=== PATIENT | male | born 1970 | race Caucasian/White ===

== ENCOUNTER 2017-11-21 14:38 | Emergency (ER) | payer SELFPAY ==
[~2017-11-21 14:38] MED LIST: DIFL500T PO
[2017-11-21] MEDS ORDERED: IOHEXOL 350 MG/ML 10 ML VIAL (for RAD DIAG) IVCONTRAST ONE (14:39)
[2017-11-21 14:51] VITALS: BP 104/78; PULSE 104; RESP 18; TEMP 98; O2SAT 98
[2017-11-21] MEDS ORDERED: SODIUM CHLOR 0.9% 1000 ML INJ 1,000 ML IV SCH (16:48)
--- NOTE | 2017-11-21 16:49 | PD ---
HPI Chief Complaint: GI Complaint Time Seen by Provider: 16:09 Travel History International Travel<30 days: No Contact w/Intl Traveler<30days: No Traveled to known affect area: No History of Present Illness HPI 47-year-old male presents emergency department for evaluation of abdominal pain , intermittently occurring over the last several months. It started again over the last few days. He has been unable to keep anything down. He denies any hematochezia or hematemesis. Denies any bowel or bladder changes. He denies fever chills. Pain is intermittently sharp but a constant ache. He has no other symptoms to report at this time. [facility] Past Medical History Medical History: Denies Significant Hx Social History Alcohol Use: Yes (DRINKS DAILY) Tobacco Use: Yes (1/2 PACK DAILY X 20 YEARS) Substance Use: No Allergies-Medications (Allergen,Severity, Reaction): Coded Allergies: No Known Allergies (Verified Allergy, Unknown, 11/21/17) Reported Meds & Prescriptions Reported Meds & Active Scripts Active [place] (Hydrocodone-Acetaminophen) 5 Mg-325 Mg Tab 1 Tab PO Q6H PRN Cipro (Ciprofloxacin HCl) 500 Mg Tab 500 Mg PO BID 10 Days Flagyl (Metronidazole) 500 Mg Tab 500 Mg PO TID 10 Days Review of Systems Except as stated in HPI: all other systems reviewed are Neg Physical Exam Narrative GENERAL: Well-nourished male patient in no acute distress SKIN: Focused skin assessment warm/dry. HEAD: Atraumatic. Normocephalic. EYES: Pupils equal and round. No scleral icterus. No injection or drainage. ENT: No nasal bleeding or discharge. Mucous membranes pink and moist. NECK: Trachea midline. No JVD. CARDIOVASCULAR: Tachycardic rate and rhythm. No murmur appreciated. RESPIRATORY: No accessory muscle use. Clear to auscultation. Breath sounds equal bilaterally. GASTROINTESTINAL: Abdomen soft, nondistended. Tenderness elicited palpation in the lower abdomen primarily on the left. Mild guarding. No rebound tenderness. Hepatic and splenic margins not palpable. MUSCULOSKELETAL: No obvious deformities. No clubbing. No cyanosis. No edema. NEUROLOGICAL: Awake and alert. No obvious cranial nerve deficits. Motor grossly within normal limits. Normal speech. PSYCHIATRIC: Appropriate mood and affect; insight and judgment normal. Data Data Last Documented VS Vital Signs Date Time Temp Pulse Resp B/P (MAP) Pulse Ox O2 Delivery O2 Flow Rate FiO2 11/21/17 19:59 90 16 122/68 (86) 96 11/21/17 14:51 98.0 Orders Orders Complete Blood Count With Diff (11/21/17 16:48) Comprehensive Metabolic Panel (11/21/17 16:48) Lipase (11/21/17 16:48) Ct Abd/Pel W Iv Contrast(Rout) (11/21/17 16:48) Iv Access Insert/Monitor (11/21/17 16:48) Ecg Monitoring (11/21/17 16:48) Oximetry (11/21/17 16:48) Ondansetron Inj (Zofran Inj) (11/21/17 17:00) Pantoprazole Inj (Protonix Inj) (11/21/17 17:00) Sodium Chlor 0.9% 1000 Ml Inj (Ns 1000 M (11/21/17 16:48) Sodium Chloride 0.9% Flush (Ns Flush) (11/21/17 17:00) Ketorolac Inj (Toradol Inj) (11/21/17 17:00) Iohexol 350 Inj (Omnipaque 350 Inj) (11/21/17 14:39) Ed Discharge Order (11/21/17 19:37) Labs Laboratory Tests Test 11/21/17 17:35 White Blood Count 8.6 TH/MM3 Red Blood Count 4.44 MIL/MM3 Hemoglobin 14.5 GM/DL Hematocrit 42.7 % Mean Corpuscular Volume 96.2 FL Mean Corpuscular Hemoglobin 32.6 PG Mean Corpuscular Hemoglobin Concent 33.9 % Red Cell Distribution Width 16.0 % Platelet Count 257 TH/MM3 Mean Platelet Volume 8.7 FL Neutrophils (%) (Auto) 69.4 % Lymphocytes (%) (Auto) 21.3 % Monocytes (%) (Auto) 6.3 % Eosinophils (%) (Auto) 1.6 % Basophils (%) (Auto) 1.4 % Neutrophils # (Auto) 6.0 TH/MM3 Lymphocytes # (Auto) 1.8 TH/MM3 Monocytes # (Auto) 0.5 TH/MM3 Eosinophils # (Auto) 0.1 TH/MM3 Basophils # (Auto) 0.1 TH/MM3 CBC Comment DIFF FINAL Differential Comment Blood Urea Nitrogen 3 MG/DL Creatinine 0.91 MG/DL Random Glucose 105 MG/DL Total Protein 7.2 GM/DL Albumin 3.9 GM/DL Calcium Level 9.0 MG/DL Alkaline Phosphatase 109 U/L Aspartate Amino Transf (AST/SGOT) 35 U/L Alanine Aminotransferase (ALT/SGPT) 24 U/L Total Bilirubin 0.7 MG/DL Sodium Level 134 MEQ/L Potassium Level 3.8 MEQ/L Chloride Level 97 MEQ/L Carbon Dioxide Level 27.6 MEQ/L Anion Gap 9 MEQ/L Estimat Glomerular Filtration Rate 89 ML/MIN Lipase 79 U/L MDM Medical Decision Making Medical Screen Exam Complete: Yes Emergency Medical Condition: Yes Medical Record Reviewed: Yes Differential Diagnosis Colitis versus diverticulitis versus appendicitis versus gastritis Narrative Course 47-year-old male presents emergency department for evaluation of abdominal pain , nausea, vomiting. Patient does have moderate tenderness to palpation of the abdomen, mostly in the lower quadrants. He appears overall well. He is mildly tachycardic. Laboratory Tests Test 11/21/17 17:35 White Blood Count 8.6 TH/MM3 Red Blood Count 4.44 MIL/MM3 Hemoglobin 14.5 GM/DL Hematocrit 42.7 % Mean Corpuscular Volume 96.2 FL Mean Corpuscular Hemoglobin 32.6 PG Mean Corpuscular Hemoglobin Concent 33.9 % Red Cell Distribution Width 16.0 % Platelet Count 257 TH/MM3 Mean Platelet Volume 8.7 FL Neutrophils (%) (Auto) 69.4 % Lymphocytes (%) (Auto) 21.3 % Monocytes (%) (Auto) 6.3 % Eosinophils (%) (Auto) 1.6 % Basophils (%) (Auto) 1.4 % Neutrophils # (Auto) 6.0 TH/MM3 Lymphocytes # (Auto) 1.8 TH/MM3 Monocytes # (Auto) 0.5 TH/MM3 Eosinophils # (Auto) 0.1 TH/MM3 Basophils # (Auto) 0.1 TH/MM3 CBC Comment DIFF FINAL Differential Comment Blood Urea Nitrogen 3 MG/DL Creatinine 0.91 MG/DL Random Glucose 105 MG/DL Total Protein 7.2 GM/DL Albumin 3.9 GM/DL Calcium Level 9.0 MG/DL Alkaline Phosphatase 109 U/L Aspartate Amino Transf (AST/SGOT) 35 U/L Alanine Aminotransferase (ALT/SGPT) 24 U/L Total Bilirubin 0.7 MG/DL Sodium Level 134 MEQ/L Potassium Level 3.8 MEQ/L Chloride Level 97 MEQ/L Carbon Dioxide Level 27.6 MEQ/L Anion Gap 9 MEQ/L Estimat Glomerular Filtration Rate 89 ML/MIN Lipase 79 U/L Last Impressions Abdomen/Pelvis CT 11/21/17 1648 Signed Impressions: Service Date/Time: Tuesday, November 21, 2017 19:09 - CONCLUSION: 1. Mild diffuse wall thickening involving the sigmoid colon consistent with possible mild diverticulitis. No pericolic stranding or abscess collection is noted. 2. Mild chronic compression deformities involving L1 and L2. 3. Multiple bilateral renal cysts. Yazan Bailey MD Findings are reviewed with my attending physician. Patient will be discharged home on Flagyl and Cipro. He is encouraged to follow-up with a payroll accounting specialist. He agrees to return immediately with acute worsening symptoms. Diagnosis Primary Impression: Diverticulitis Referrals: French Professor Primary Care Physician Patient Instructions: Diverticulitis (ED), General Instructions Additional Instructions: Follow-up with a primary care provider See gastroenterology evaluation Return immediately with acute worsening symptoms Med/Other Pt SpecificInfo: Prescription(s) given Scripts Hydrocodone-Acetaminophen ([place]) 5 Mg-325 Mg Tab 1 TAB PO Q6H Y for PAIN SCALE 1 TO 10, #12 TAB 0 Refills Prov: Kylie Kimbrough 11/21/17 Ciprofloxacin (Cipro) 500 Mg Tab 500 MG PO BID for Infection for 10 Days, #20 TAB 0 Refills Prov: Kylie Kimbrough 11/21/17 Metronidazole (Flagyl) 500 Mg Tab 500 MG PO TID for Infection for 10 Days, TAB 0 Refills Prov: Kylie Kimbrough 11/21/17 Disposition: 01 DISCHARGE HOME Condition: Stable Kylie Kimbrough November 21, 2017 16:49
[2017-11-21] MEDS ORDERED: ONDANSETRON HCL 4 MG/2 ML VIAL IVP ONE (17:00)
[2017-11-21] MEDS ORDERED: SODIUM CHLORIDE 0.9% FLUSH 10 ML FLUSH IV FLUSH PRN (17:00)
[2017-11-21] MEDS ORDERED: PANTOPRAZOLE SODIUM 40 MG VIAL IVP ONE (17:00)
[2017-11-21] MEDS ORDERED: KETOROLAC TROMETHAMINE 30 MG/ML (IVP) VIAL IVP ONE (17:00)
[2017-11-21 18:15] LABS: BASOPHIL # 0.1 TH/MM3 (0-0.2); BASOPHIL % 1.4 % (0.0-2.0); EOSINOPHIL # 0.1 TH/MM3 (0-0.4); EOSINOPHIL % 1.6 % (0.0-4.0); HEMATOCRIT 42.7 % (39.0-51.0); HEMOGLOBIN 14.5 GM/DL (13.0-17.0); LYMPH % 21.3 % (9.0-44.0); LYMPHOCYTE # 1.8 TH/MM3 (1.0-4.8); MEAN CELL VOLUME 96.2 FL (80.0-100.0); MEAN CORPUSCULAR HEMOGLOBIN 32.6 PG (27.0-34.0); MEAN CORPUSCULAR HGB CONC 33.9 % (32.0-36.0); MEAN PLATELET VOLUME 8.7 FL (7.0-11.0); MONO % 6.3 % (0.0-8.0); MONOCYTE # 0.5 TH/MM3 (0-0.9); NEUT % 69.4 % (16.0-70.0); PLATELET COUNT 257 TH/MM3 (150-450); RED BLOOD COUNT 4.44 MIL/MM3 (4.50-5.90); WHITE BLOOD COUNT 8.6 TH/MM3 (4.0-11.0)
[2017-11-21 18:29] LABS: ALBUMIN 3.9 GM/DL (3.4-5.0); AST (GOT) 35 U/L (15-37); BICARBONATE 27.6 MEQ/L (21.0-32.0); BLOOD UREA NITROGEN 3 MG/DL (7-18); CHLORIDE 97 MEQ/L (98-107); CREATININE 0.91 MG/DL (0.60-1.30); GLOMERULAR FILTRATION RATE 89 ML/MIN (>89); GLUCOSE,RANDOM 105 MG/DL (74-106); SODIUM (NA) 134 MEQ/L (136-145)
[2017-11-21 18:31] LABS: ALKALINE PHOSPHATASE 109 U/L (45-117); ALT (GPT) 24 U/L (12-78); TOTAL BILIRUBIN ADULT 0.7 MG/DL (0.2-1.0); TOTAL PROTEIN 7.2 GM/DL (6.4-8.2)
--- NOTE | 2017-11-21 19:22 | PD ---
Physical Exam Date Seen by Provider: November 21, 2017 Time Seen by Provider: 18:00 Narrative I, Dr. Rice, have reviewed the advance practice practitioner's documentation and am in agreement, met with the patient face to face, made the diagnosis, and the medical decision making was done by me. *My assessment and Findings: Patient seen and evaluated with nurse practitioner , please see her chart for further details. Here with abdominal discomfort, nausea and vomiting, abdomen is fairly nontender on my evaluation. Laboratory Tests Test 11/21/17 17:35 Red Blood Count 4.44 MIL/MM3 (4.50-5.90) Blood Urea Nitrogen 3 MG/DL (7-18) Sodium Level 134 MEQ/L (136-145) Chloride Level 97 MEQ/L (98-107) Awaiting CAT scan for further evaluation. Data Data Last Documented VS Vital Signs Date Time Temp Pulse Resp B/P (MAP) Pulse Ox O2 Delivery O2 Flow Rate FiO2 11/21/17 14:51 98.0 104 18 104/78 (87) 98 Orders Orders Complete Blood Count With Diff (11/21/17 16:48) Comprehensive Metabolic Panel (11/21/17 16:48) Lipase (11/21/17 16:48) Ct Abd/Pel W Iv Contrast(Rout) (11/21/17 16:48) Iv Access Insert/Monitor (11/21/17 16:48) Ecg Monitoring (11/21/17 16:48) Oximetry (11/21/17 16:48) Ondansetron Inj (Zofran Inj) (11/21/17 17:00) Pantoprazole Inj (Protonix Inj) (11/21/17 17:00) Sodium Chlor 0.9% 1000 Ml Inj (Ns 1000 M (11/21/17 16:48) Sodium Chloride 0.9% Flush (Ns Flush) (11/21/17 17:00) Ketorolac Inj (Toradol Inj) (11/21/17 17:00) Iohexol 350 Inj (Omnipaque 350 Inj) (11/21/17 14:39) Labs Laboratory Tests Test 11/21/17 17:35 White Blood Count 8.6 TH/MM3 Red Blood Count 4.44 MIL/MM3 Hemoglobin 14.5 GM/DL Hematocrit 42.7 % Mean Corpuscular Volume 96.2 FL Mean Corpuscular Hemoglobin 32.6 PG Mean Corpuscular Hemoglobin Concent 33.9 % Red Cell Distribution Width 16.0 % Platelet Count 257 TH/MM3 Mean Platelet Volume 8.7 FL Neutrophils (%) (Auto) 69.4 % Lymphocytes (%) (Auto) 21.3 % Monocytes (%) (Auto) 6.3 % Eosinophils (%) (Auto) 1.6 % Basophils (%) (Auto) 1.4 % Neutrophils # (Auto) 6.0 TH/MM3 Lymphocytes # (Auto) 1.8 TH/MM3 Monocytes # (Auto) 0.5 TH/MM3 Eosinophils # (Auto) 0.1 TH/MM3 Basophils # (Auto) 0.1 TH/MM3 CBC Comment DIFF FINAL Differential Comment Blood Urea Nitrogen 3 MG/DL Creatinine 0.91 MG/DL Random Glucose 105 MG/DL Total Protein 7.2 GM/DL Albumin 3.9 GM/DL Calcium Level 9.0 MG/DL Alkaline Phosphatase 109 U/L Aspartate Amino Transf (AST/SGOT) 35 U/L Alanine Aminotransferase (ALT/SGPT) 24 U/L Total Bilirubin 0.7 MG/DL Sodium Level 134 MEQ/L Potassium Level 3.8 MEQ/L Chloride Level 97 MEQ/L Carbon Dioxide Level 27.6 MEQ/L Anion Gap 9 MEQ/L Estimat Glomerular Filtration Rate 89 ML/MIN Lipase 79 U/L MDM Medical Record Reviewed: Yes Supervised Visit with CELESTE: Yes Diagnosis Primary Impression: Abdominal pain Scripts No Active Prescriptions or Reported Meds Condition: Stable Rosaura Rice MD November 21, 2017 19:22
--- NOTE | 2017-11-21 19:31 | RADRPT ---
EXAM DATE/TIME: 11/21/2017 19:09 [place] COMPARISON: No previous studies available for comparison. INDICATIONS : Nausea and vomiting past week. IV CONTRAST: 96 cc Omnipaque 350 (iohexol) IV ORAL CONTRAST: No oral contrast ingested. RADIATION DOSE: 4.51 CTDIvol (mGy) MEDICAL HISTORY : Alcohol abuse SURGICAL HISTORY : None. ENCOUNTER: Initial ACUITY: 1 week PAIN SCALE: 0/10 LOCATION: abdomen TECHNIQUE: Volumetric scanning of the abdomen and pelvis was performed. Using automated exposure control and ad justment of the mA and/or kV according to patient size, radiation dose was kept as low as reasonably achievable to obtain optimal diagnostic quality images. DICOM format image data is available electro nically for review and comparison. FINDINGS: LOWER LUNGS: The visualized lower lungs are clear. LIVER: Homogeneous density without lesion. There is no dilation of the biliary tree. No calcified gallston es. SPLEEN: Normal size without lesion. PANCREAS: Within normal limits. KIDNEYS: Normal in size and shape. There is no solid mass, stone or hydronephrosis. Scattered renal cysts are noted bilaterally with the largest on the left measuring 1.7 cm. ADRENAL GLANDS: Within normal limits. VASCULAR: There is no aortic aneurysm. BOWEL/MESENTERY: Mild wall thickening is noted throughout the sigmoid colon consistent with possible mild diverticulit is. No pericolic abscess is noted. No significant pericolic stranding is noted. No bowel obstruction is noted. ABDOMINAL WALL: Within normal limits. RETROPERITONEUM: There is no lymphadenopathy. BLADDER: No wall thickening or mass. REPRODUCTIVE: Within normal limits. INGUINAL: There is no lymphadenopathy or hernia. MUSCULOSKELETAL: Mild compression formation are noted involving L1 and L2 and are likely chronic. CONCLUSION: 1. Mild diffuse wall thickening involving the sigmoid colon consistent with possible mild diverticuli tis. No pericolic stranding or abscess collection is noted. 2. Mild chronic compression deformities involving L1 and L2. 3. Multiple bilateral renal cysts. Yazan Bailey MD on November 21, 2017 at 19:24 Board Certified Radiologist. This report was verified electronically.
[2017-11-21] MEDS ORDERED: NORC5TAB PO (19:42)
[2017-11-21] MEDS ORDERED: CIPR-9 PO (19:42)
[2017-11-21] MEDS ORDERED: METR-1 PO (19:42)
[2017-11-21 19:59] VITALS: BP 122/68
== END 2017-11-21 20:06 | disposition home or self-care (01) ==
LOC: NEPC 14:38
DX: K57.92 Diverticulitis of intestine, part unspecified, without perforation or abscess without bleeding (principal); N28.1 Cyst of kidney, acquired; F17.200 Nicotine dependence, unspecified, uncomplicated
CPT/HCPCS: 74177; 80053; 83690; 85025; 96374; 96375; 99284; C9113; J1885; J2405; J7030; Q9967